=== PATIENT | male | born 1990 | race Two or more races ===

== ENCOUNTER 2025-06-15 08:15 | Emergency (ER) | payer MEDICAID, OTHER ==
[~2025-06-15] VITALS: Ht 175.3 cm; Wt 87.1 kg
--- NOTE | 2025-06-15 08:51 | ED.PDOC ---
Musculoskeletal HPI Comments 34-year-old male who is Hebrew-speaking and in a wheelchair presents to the ER with a chief complaint of lower extremity pain. Patient reports on having had been walking out of his house when he rolled his right ankle causing severe pain this morning. Patient came into the ER today for an x-ray to the right ankle st atus post fall at home earlier today. Denies any other symptoms at this time. Denies chills, fever, N/V/D, SOB, CP. No other associated symptoms, modifiers, recent injuries or sick contacts present at this time. Chief Complaint: Lower Extremity Time Seen by MD: 08:45 Reviewed Notes: Nurses Notes, Medications, Allergies Allergies: Coded Allergies: NO KNOWN ALLERGIES (Unverified , 06/15/25) Home Meds Active Scripts Ibuprofen (Ibuprofen) 600 Mg Tab, 1 TAB PO TID for 10 Days, #30 TAB 0 Refills Prov:SIVAN GOMEZ NP 06/15/25 Information Source: Patient, Friend Mode of Arrival: Ambulatory Location: Right Extremity Location: Ankle Timing: Hours Prehospital treatment: None Severity: Moderate Able to Move Extremity: No Bear Weight: Limited Pain: Moderate Hand Dominance: Right Mechanism: Spontaneous Circumstances: Fall Onset of Symptoms: After Trauma Symptoms: Swelling, Pain DVT Risk Factors: NONE Associated signs and symptoms: Knee pain Past Medical History PAST MEDICAL HISTORY: Denies Surgical History: Denies all surgeries Family History Family History: Reviewed,noncontributory to illness, Unknown Social History Smoker: Non-Smoker Alcohol: Denies ETOH Use Drugs: Denies Drug Use Lives In: Home Constitutional: denies: chills, diaphoresis, fatigue, fever, malaise, sweats, weakness, others EENTM: denies: blurred vision, double vision, ear bleeding, ear discharge, ear drainage, ear pain, ear ringing, eye pain, eye redness, hearing loss, mouth pain, mouth swelling, nasal discharge, nose bleeding, nose congestion, nose pain, photophobia, tearing, throat pain, throat swelling, voice changes, others Respiratory: denies: cough, hemoptysis, orthopnea, SOB at rest, shortness of breath, SOB with excertion, stridor, wheezing, others Cardiovascular: denies: chest pain, dizzy spells, diaphoresis, Dyspnea on exertion, edema, irregular heart beat, left arm pain, lightheadedness, palpitations, PND, syncope, others Gastrointestinal: denies: abdomen distended, abdominal pain, blood streaked bowels, constipated, diarrhea, dysphagia, difficulty swallowing, hematemesis, melena, nausea, poor appetite, poor fluid intake, rectal bleeding, rectal pain, vomiting, others Genitourinary: denies: burning, dysuria, flank pain, frequency, hematuria, incontinence, penile discharge, penile sore, pain, testicle pain, testicle swelling, urgency, others Neurological: denies: dizziness, fainting, headache, left sided numbness, left sided weakness, numbness, paresthesia, pre-existing deficit, right sided numbness, right sided weakness, seizure, speech problems, tingling, tremors, weakness, others Musculoskeletal: reports: others (Right ankle pain status post fall); denies: back pain, gout, joint pain, joint swelling, muscle pain, muscle stiffness, neck pain Integumetry: denies: bruises, change in color, change in hair/nails, dryness, laceration, lesions, lumps, rash, wounds, others Allergic/Immunocompromised: denies: Difficulty Healing, Frequent Infections, Hives, Itching, others Hematologic/Lymphatic: denies: anemia, blood clots, easy bleeding, easy bruising, swollen glands, others Endocrine: denies: excessive hunger, excessive sweating, excessive thirst, excessive urination, flushing, intolerance to cold, intolerance to heat, unexplained weight gain, unexplained weight loss, others Psychiatric: denies: anxiety, bipolar disorder, depression, hopeless, panic disorder, schizophrenia, sleepless, suicidal, others All Other Systems: Reviewed and Negative Physical Exam Exam Comments Localized TTP to the lateral malleolus , pain with dorsiflexion and plantar flexion, neurovascular sensation intact General Appearance: No Apparent Distress, Normal HEENT: Normal ENT Inspection, Pharynx Normal, TMs Normal Neck: Full Range of Motion, Non-Tender, Normal, Normal Inspection Respiratory: Chest Non-Tender, Lungs Clear, No Accessory Muscle Use, No Respiratory Distress, Normal Breath Sounds Cardiovascular: No Edema, No JVD, No Murmur, No Gallop, Normal Peripheral Pulses, Regular Rate/Rhythm Breast Exam: Deferred Gastrointestinal: No Organomegaly, Non Tender, No Pulsatile Mass, Normal Bowel Sounds, Soft Genitalia: Deferred Pelvic: Deferred Rectal: Deferred Extremities: No calf tenderness, Normal capillary refill, Normal inspection, Normal range of motion, Non-tender, No pedal edema Musculoskeletal : Apperance: Normal Neurologic: Alert, mechanical service technician II-XII nml as Tested, No Motor Deficits, Normal Affect, Normal Mood, No Sensory Deficits Cerebellar Function: Normal Reflexes: Normal Skin: Dry, Normal Color, Warm Lymphatic: No Adenopathy Was a procedure done? Was a procedure done?: No Differential Diagnosis EXT Differential Diagnosis: Other X-Ray, Labs, Meds, VS Vital Signs Date Time Temp Pulse Resp B/P (MAP) Pulse Ox O2 Delivery O2 Flow Rate FiO2 06/15/25 11:20 98.4 63 18 140/93 (109) 98 98.4 06/15/25 08:16 97.3 78 15 145/89 98 97.3 PATIENT: MADELYN GREENECCT: [id number]: [id number] : 1990 LOC: ER ROOM / BED: / AGE / SEX: 34 / M ADM STATUS: REG ER SERVICE 9 ORDERING PHYSICIAN: SIVAN GOMEZ NP PROCEDURE(s): RANKL - R ANKLE 3 VIEW REASON: rolled ankle. ORDER NUMBER(s): [id number], ACCESSION NUMBER(s): [id number] CLINICAL INDICATION: rolled ankle. TECHNIQUE: XY R ANKLE 3 VIEW Comparison: None FINDINGS: Oblique nondisplaced fracture of the distal tibia. Ankle mortise is intact. Diffuse soft-tissue swelling most prominent medially. IMPRESSION: 1. Oblique nondisplaced fracture of the distal tibia. ATED BY: YOEL PALACIOS MD DICTATED DATE/TIME: 06/15/251014 SIGNED BY: YOEL PALACIOS MD SIGNED DATE/TIME: 06/15/251014 X-Ray, Labs, Meds, VS Comment Patient arrives alert and oriented, ABC's intact, afebrile, vital signs stable, saturating well in room air Diagnostic imaging ordered by me and results interpreted by radiology : X-ray to the right ankle Splint ordered and neurovascular sensation intact on revaluation. Patient is stable for discharge at this time. External notes reviewed. Test results and diagnostic imaging interpreted. All diagnostic findings, discharge care, education and instructions provided Follow-up with PCP in 2 to 3 days Patient verbalized understanding and agreed to treatment plan Vital signs stable, afebrile, no acute distress noted Patient ambulatory with strong steady gait Advised to return precautions for any new or worsening symptoms, return to ER immediately for re-evaluation Patient is aware that the purpose of this visit was for an acute medical emergency requiring emergent stabilization. Chronic conditions, including malignancies have not been ruled out. Patient is instructed to follow up with PCP as directed and discharge instructions for continued care and workup. If unable to arrange follow-up, patient is to return to the emergency department for reassessment. Patient (parent or legal guardian if applicable) was given verbal and written discharge instructions and acknowledges understanding. Additional MDM Review of External, Non-ED records: External records reviewed. Discussion with independent historian (EMS, family) history obtained from the patient/parents (if applicable) at bedside Chronic conditions affecting care: None Social determinants of health affecting care: None Consideration of admission (observation or admission): I considered escalation of care to admission for this patient, however given the reassuring workup, the patient is safe for outpatient management. Discussion with the Radiology: No Tests considered but not performed: Prescription medication considered but not given: 12 lead EKG interpretation: Time of 1ST Reevaluation: 09:15 Reevaluation 1ST: Unchanged Patient Education/Counseling: Diagnosis, Treatment, Prognosis Family Education/Counseling: Diagnosis, Treatment, Prognosis Departure 1 Departure Time of Disposition: 10:33 Impression: Primary Impression: Fracture of distal end of tibia Qualified Codes: S82.301A - Unspecified fracture of lower end of right tibia, initial encounter for closed fracture Disposition: 01 HOME / SELF CARE / HOMELESS Condition: Stable e-Prescriptions Ibuprofen (Ibuprofen) 600 Mg Tab 1 TAB PO TID for 10 Days, #30 TAB 0 Refills Prov: SIVAN GOMEZ NP 06/15/25 Discharged With: Self Critical Care Note Critical Care Time?: No Stability Stability form required: No Heart Score Heart Score: Heart Score Response (Comments) Value History N/A 0 EKG N/A 0 Age N/A 0 Risk Factors N/A 0 Troponin N/A 0 Total 0 I personally scribed for SIVAN GOMEZ NP ([employer]) on 06/15/25 at 08:51. Electronically submitted by Paras Watts ([email or web address]). I personally scribed for SIVAN GOMEZ NP ([email or web address]) on 06/15/25 at 09:22. Electronically submitted by Paras Watts ([email or web address]). SIVAN GOMEZ NP Jun 15, 2025 08:51
--- NOTE | 2025-06-15 10:17 | DVH ---
CLINICAL INDICATION: rolled ankle. TECHNIQUE: XY R ANKLE 3 VIEW Comparison: None FINDINGS: Oblique nondisplaced fracture of the distal tibia. Ankle mortise is intact. Diffuse soft-tissue swelling most prominent medially. IMPRESSION: 1. Oblique nondisplaced fracture of the distal tibia.
[2025-06-15] MEDS ORDERED: IBUP-1454 PO (10:34)
[2025-06-15 11:20] VITALS: BP 140/93; PULSE 63; RESP 18; TEMP 98.4; O2SAT 98
== END 2025-06-15 11:37 | disposition home or self-care (01) ==
LOC: ER 08:15
DX: S82.301A Unspecified fracture of lower end of right tibia, initial encounter for closed fracture (principal); X50.1XXA Overexertion from prolonged static or awkward postures, initial encounter; Y93.89 Activity, other specified; Y92.89 Other specified places as the place of occurrence of the external cause; Y99.8 Other external cause status
CPT/HCPCS: 29515; 73610